=== PATIENT | female | born 1980 | race Caucasian/White ===

== ENCOUNTER → 2023-05-19 12:26 | Outpatient (REF) | payer OTHER, SELFPAY | LOC: HWWDC 12:26 | PROVIDERS: ATTENDING PHYSICIAN Obstetrics & Gynecology; FAMILY PHYSICIAN Family Medicine | DX: Z12.31 Encounter for screening mammogram for malignant neoplasm of breast (principal) | CPT/HCPCS: 77063; 77067 ==

== ENCOUNTER → 2024-05-20 12:59 | Outpatient (REF) | payer OTHER, SELFPAY | LOC: HWWDC 12:59 | PROVIDERS: ATTENDING PHYSICIAN Obstetrics & Gynecology; FAMILY PHYSICIAN Family Medicine | DX: Z12.31 Encounter for screening mammogram for malignant neoplasm of breast (principal) | CPT/HCPCS: 77063; 77067 ==

== ENCOUNTER 2024-11-22 06:21 | Day surgery (SDC) | payer OTHER, SELFPAY | END 2024-11-22 10:51 | disposition home or self-care (01) | LOC: GI 06:21 | PROVIDERS: ATTENDING PHYSICIAN Internal Medicine Gastroenterology | DX: K63.5 Polyp of colon (principal); K51.40 Inflammatory polyps of colon without complications; K57.30 Diverticulosis of large intestine without perforation or abscess without bleeding; D50.0 Iron deficiency anemia secondary to blood loss (chronic); K31.89 Other diseases of stomach and duodenum; Z98.890 Other specified postprocedural states | CPT/HCPCS: 45385; 43239; 88305 ==